=== PATIENT | male | born 1995 | race African-American/Black ===

== ENCOUNTER 2022-01-17 13:53 | Emergency (ER) | payer BC ==
[2022-01-17] MEDS ORDERED: Lidocaine 1% w/Epinephrine 1:100K 20 ML VIAL ONE (15:37)
[2022-01-17] MEDS ORDERED: FENTANYL 50 MCG/ML 1 ML VIAL ONE (15:37)
== END 2022-01-17 16:51 | disposition home or self-care (01) ==
LOC: ERS 13:53
DX: J93.11 Primary spontaneous pneumothorax (principal)
CPT/HCPCS: 32551; 71045; J3010

== ENCOUNTER 2023-01-22 15:53 | Outpatient (CLI) | payer BC | END 2023-01-22 15:54 | disposition home or self-care (01) | LOC: BICRAD 15:53 | PROVIDERS: ATTEND Thoracic Surgery (Cardiothoracic Vascular Surgery) | DX: J93.9 Pneumothorax, unspecified (principal); Z97.8 Presence of other specified devices | CPT/HCPCS: 71046 ==